=== PATIENT | male | born 1955 | race Caucasian/White ===

== ENCOUNTER 2017-11-19 19:25 | Emergency (ER) | payer OTHER ==
[~2017-11-19] VITALS: Ht 167.6 cm; Wt 74.3 kg
[~2017-11-19 19:25] MED LIST: METOPROLOL TART25 MG PO; PANTOPRAZOLE SO40 MG PO; VERAPAMIL HCL240 MG PO; VERAPAMIL HCL360 MG PO
[2017-11-19 21:06] VITALS: BP 124/85
== END 2017-11-19 21:07 | disposition home or self-care (01) ==
LOC: EME 19:25
DX: H11.31 Conjunctival hemorrhage, right eye (principal); S05.91XA Unspecified injury of right eye and orbit, initial encounter; W22.8XXA Striking against or struck by other objects, initial encounter; Y92.828 Other wilderness area as the place of occurrence of the external cause; I10 Essential (primary) hypertension; I48.91 Unspecified atrial fibrillation
CPT/HCPCS: 99281; 99284